=== PATIENT | male | born 1985 | race Caucasian/White ===

== ENCOUNTER 2020-10-17 18:15 | Emergency (ER) | payer MEDICAID ==
[~2020-10-17] VITALS: Ht 182.9 cm; Wt 82.8 kg
[2020-10-17 18:20] VITALS: BP 135/80
[2020-10-17] MEDS ORDERED: LIDOcaine 1% 30ml preserv. free vial IJ ONE (18:50)
[2020-10-17] MEDS ORDERED: TETanus/Pertussis (Acell)/Diphther VAC/PF (Tdap-Adult) 0.5ml syringe IMVAC ONE (18:55)
[2020-10-17] MEDS ORDERED: CEPH250T PO (20:42)
[2020-10-17] MEDS ORDERED: HYDR-4383 PO (20:42)
== END 2020-10-17 20:58 | disposition home or self-care (01) ==
LOC: ER 18:16
DX: S61.314A Laceration without foreign body of right ring finger with damage to nail, initial encounter (principal); M79.644 Pain in right finger(s); F17.200 Nicotine dependence, unspecified, uncomplicated; Z72.89 Other problems related to lifestyle; Z79.2 Long term (current) use of antibiotics; Z79.899 Other long term (current) drug therapy; X58.XXXA Exposure to other specified factors, initial encounter; Y93.89 Activity, other specified; Y92.89 Other specified places as the place of occurrence of the external cause; Y99.8 Other external cause status
CPT/HCPCS: 12001; 29130; 73140; 90471; 90715; 99283